=== PATIENT | male | born 2000 | race Caucasian/White ===

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

== ENCOUNTER → 2020-10-26 | Outpatient (REF) | payer OTHER ==
[~2020-10-26] MED LIST changes: +KETO10TAB PO; -MONT5CHW; +MONT5CHW8; +NAPR-849 PO; -NAPR250T4 PO
[2020-10-26 18:07] LABS: EOS # 0.4 10^3/uL (0.0-0.5)
[2020-10-26 18:40] LABS: CHOLESTEROL RISK RATIO 2.232 (<5)
[2020-10-26 18:45] LABS: TOTAL 25(OH) VITAMIN D 19.5 NG/ML (30.0-100.0)
== END ==
LOC: M LAB REF 16:58
PROVIDERS: ATTEND Pediatrics
DX: J45.909 Unspecified asthma, uncomplicated (principal); Z13.220 Encounter for screening for lipoid disorders; E55.9 Vitamin D deficiency, unspecified

== ENCOUNTER 2022-01-10 02:58 | Emergency (ER) | payer BC, OTHER ==
[~2022-01-10] VITALS: Ht 175.3 cm; Wt 69.1 kg
[2022-01-10 02:58] VITALS: BP 126/79
[~2022-01-10 02:58] MED LIST changes: -MONT5CHW8; +MONT5CHW9
== END 2022-01-10 03:12 | disposition left against medical advice (07) ==
LOC: M ED 02:58
DX: Z53.21 Procedure and treatment not carried out due to patient leaving prior to being seen by health care provider (principal)

== ENCOUNTER 2022-11-16 14:00 | Emergency (ER) | payer BC, OTHER ==
[~2022-11-16] VITALS: Ht 175.3 cm; Wt 77.6 kg
[~2022-11-16 14:00] MED LIST changes: +MONT5CHW10; -MONT5CHW9
[2022-11-16 14:02] VITALS: BP 115/77
== END 2022-11-16 14:41 | disposition left against medical advice (07) ==
LOC: M ED 14:00
DX: R10.9 Unspecified abdominal pain (principal); Z53.21 Procedure and treatment not carried out due to patient leaving prior to being seen by health care provider

== ENCOUNTER → 2022-12-13 | Outpatient (CLI) | payer BC | LOC: M RAD 09:13 | PROVIDERS: ATTEND Pediatrics | DX: M54.50 Low back pain, unspecified (principal) ==